=== PATIENT | female | born 1950 | race African-American/Black ===

== ENCOUNTER 2024-11-25 21:26 | Emergency (ER) | payer MEDICARE, OTHER ==
[~2024-11-25] VITALS: Ht 160 cm; Wt 50.0 kg
[2024-11-25 21:35] VITALS: O2SAT 100
[2024-11-25 22:26] LABS: BASOPHILS % 0.3 % (0.0-2.0); EOSINOPHILS % 1.2 % (0.0-5.0); HEMATOCRIT. 36.2 % (42.0-52.0); HEMOGLOBIN. 11.2 g/dL (14.0-18.0); LYMPHOCYTES % 28.0 % (20.0-50.0); MEAN PLATELET VOLUME 10.0 fl (7.4-10.4); MONOCYTES % 10.4 % (2.0-8.0); NEUTROPHILS % 60.1 % (40.0-76.0); PLATELET 163 x1000/uL (130-400); RED BLOOD CELL COUNT 5.45 mill/uL (4.7-6.1); RED CELL DISTRIBUTION WIDTH 14.6 % (11.6-14.6)
[2024-11-25 22:36] LABS: ADD RBC MORPHOLOGY YES
[2024-11-25 22:47] LABS: CREATININE 1.1 mg/dL (0.6-1.3)
[2024-11-25 22:48] LABS: ETHANOL BLOOD < 10 mg/dL (<10); UREA NITROGEN BLOOD 19 mg/dL (9-23)
[2024-11-25 22:49] LABS: ASPARTATE AMINOTRANSFERASE 22 IU/L (<34)
[2024-11-25 22:50] LABS: BILIRUBIN DIRECT 0.3 mg/dL (<=3.0); BILIRUBIN TOTAL 1.0 mg/dL (0.1-1.0); PHOSPHORUS 4.5 mg/dL (2.5-4.9); PROTEIN TOTAL 7.3 g/dL (6.0-8.3)
[2024-11-25 22:53] LABS: TROPONIN I HIGH SENSITIVITY 95 ng/L (3.0-53)
[2024-11-25 22:56] LABS: PLATELET ESTIMATE NORMAL
[2024-11-25] MEDS: SODIUM CHLORIDE 0.9% 500 ML IV ONE (23:16)
[2024-11-25 23:23] LABS: INR 1.1
[2024-11-25] MEDS: POTASSIUM CHLORIDE 20MEQ/PACKET PO ONE (23:33)
[2024-11-26] LABS: CLARITY URINE CLEAR (CLEAR); COLOR URINE YELLOW (YELLOW); GLUCOSE URINE NEGATIVE (NEGATIVE); KETONES URINE NEGATIVE (NEGATIVE); LEUKOCYTE ESTERASE URINE NEGATIVE (NEGATIVE); NITRITE URINE NEGATIVE (NEGATIVE); OCCULT BLOOD URINE NEGATIVE (NEGATIVE); PH URINE 5.5 (4.5-8.0); PROTEIN URINE NEGATIVE (NEGATIVE); SPECIFIC GRAVITY URINE 1.007 (1.005-1.030); UROBILINOGEN URINE 1.0 E.U./dL (0.2-1.0)
[2024-11-26 00:17] LABS: *AMPHETAMINES SCREEN URINE NEGATIVE (NEGATIVE); *BARBITURATES SCREEN URINE NEGATIVE (NEGATIVE); *BENZODIAZEPINES SCREEN URINE NEGATIVE (NEGATIVE); *COCAINE SCREEN URINE NEGATIVE (NEGATIVE); CANNABINOID URINE SCREEN NEGATIVE (NEGATIVE); ECSTASY MDMA SCREEN URINE NEGATIVE (NEGATIVE); METHADONE URINE SCREEN NEGATIVE (NEGATIVE); OPIATES URINE SCREEN NEGATIVE (NEGATIVE); PHENCYCLIDINE URINE SCREEN NEGATIVE (NEGATIVE)
[2024-11-26] MEDS: HALOPERIDOL LACTATE 5MG/ML VIAL IM ONE (00:37)
[2024-11-26 01:17] LABS: TROPONIN I HIGH SENSITIVITY 95 ng/L (3.0-53)
[2024-11-26] MEDS: ASPIRIN 81MG TABLET PO ONE (02:48)
[2024-11-26 04:39] VITALS: BP 162/56; PULSE 72; RESP 24; TEMP 36.8; O2SAT 100
== END 2024-11-26 04:55 | disposition short-term general hospital (02) ==
LOC: ER 21:26 → EDSEX 21:26 → EDBEDREQ 22:44 → ER 11-26 04:55
DX: I21.4 Non-ST elevation (NSTEMI) myocardial infarction (principal); R55 Syncope and collapse; E87.6 Hypokalemia; F03.911 Unspecified dementia, unspecified severity, with agitation; I10 Essential (primary) hypertension; Z79.899 Other long term (current) drug therapy
CPT/HCPCS: 80076; 80305; 80048; 81003; 80320; 83880; 83735; 84100; 85025; 85610; 84484 ×2; 36415 ×2; 71045; 70450; 93005; 99291; 96372; J7040; J1630; G0480